=== PATIENT | male | born 1980 | race Caucasian/White ===

== ENCOUNTER 2018-10-29 13:54 | Emergency (ER) | payer BC ==
[~2018-10-29 13:54] MED LIST: ALBU1.257 IH; AZI250 PO; CIP500 PO; CLIN300C99 PO; DOXY-179 PO; ESC10 FT; HYDR-653 PO; KET10 PO; LOR5/325 PO; MELA10CA PO; MOTRIN; NO ROUTINE MEDS; NO RTN MEDS; OSE75 PO; PER PO; PHEN120S16 PO; PHEN240S3 PO; PRE20 PO; PSE30 PO; ZOLP-350 PO; [UNRECOGNIZED DRUG - OTHER] PO
--- NOTE | 2018-10-29 13:56 | ER Report ---
History and Physical Time Seen By MD: 13:56 (SARA KENNEDY MD) HPI/ROS CHIEF COMPLAINT: Dizziness HISTORY OF PRESENT ILLNESS: Patient is a 38-year-old male presents to the emergency department complaining of lightheadedness and dizziness over the past month. It is episodic in nature. It seems to occur after a coughing episode wh ich the patient and also having for the last month. He also states that at times feels like he can't catch his breath. Denies any actual chest pressure or pain. He denies any palpitations. He's noticed dark concentrated urine despite drinking a lot of water. Patient denies any fevers or chills. He denies any sinus pressure. He denies any abdominal pain nausea or vomiting. He has no known ill contacts. He denies any history of venous thromboembolic disease. He does not have a specific primary care provider but does follow up with urgent care. There is a positive family history for diabetes. Patient also admits to having frequent headaches which she takes ibuprofen for which does improve or relieve his headache. Patient denies any double vision or ringing in his ears. He reports that when he has his headache he occasionally gets neck discomfort he's also noticed some "visual changes such as blurry vision in the last month or so. REVIEW OF SYSTEMS: Constitutional: No fever, no chills. Eyes: No discharge. Blurry vision ENT: No sore throat. Cardiovascular: No chest pain, no palpitations. Respiratory: Dyspnea Gastrointestinal: No abdominal pain, no vomiting. Genitourinary: No hematuria. Musculoskeletal: No back pain. Skin: No rashes. Neurological: Episodic headaches (SARA KENNEDY MD) Allergies: Coded Allergies: nickel (Verified Allergy, Intermediate, RASH, 09/25/17) Penicillins (Verified Allergy, Mild, HIVES, 09/25/17) Home Meds Active Scripts Azithromycin 250 Mg Tab (AZITHROMYCIN 250 MG TAB) 250 Mg Tablet, 1 TAB PO QDAY, #6 TAB two pills today (500mg) then one pill once a day for 4 more days Prov:THAIS MOOER Nathanael WILSON 10/29/18 Past Medical/Surgical History No significant past medical history (SARA KENNEDY MD) Hx Smoking: No Smoking Status: Never Smoker Exposure to Second Hand Smoke?: No Hx Substance Use Disorder: No Hx Alcohol Use: Yes (SARA KENNEDY MD) Constitutional Vital Sign - Last 24 Hours 10/29/18 14:01 Temp 98.7 Pulse 99 Resp 16 B/P (MAP) 148/78 Pulse Ox 93 O2 Delivery Room Air (THAIS MOORE V ) Physical Exam General/Constitutional: Patient is awake, alert, nontoxic and in no acute respiratory distress. Head: Normocephalic and atraumatic. Eyes: Conjunctival clear, Pupils are equal and reactive to light. Extraocular muscles are intact and symmetrical. Sclera are clear and anicteric. No nystagmus Ears:External canals are clear. Tympanic membranes are clear with normal landmarks and light reflex. Nares: No rhinorrhea or bleeding. Turbinates are pink and moist. Oropharyngeal: Mucous membranes are moist. There is no pharyngeal erythema or exudate. There are no palatal petechiae. Uvula is midline and symmetrical. Neck: Supple, no adenopathy. Cardiovascular: Heart is regular rate and rhythm without audible murmurs, rubs or gallops. Pulmonary: Lungs are clear to auscultation bilaterally. There are no wheezes, rales, or rhonchi. Chest rise is symmetrical Abdomen: Soft, nontender, no guarding or peritoneal signs. Extremities: No gross deformities, No peripheral cyanosis. Able to move all 4 extremities. Neuro: Alert and oriented X3, Cranial nerves 2 thru 12 are intact and symmetrical. Skin: No rashes, skin is warm dry and well perfused. (SARA KENNEDY MD) Medical Decision Making Data Points Result Diagram: 10/29/18 1448 10/29/18 1448 Laboratory Hematology Test 10/29/18 14:45 10/29/18 14:48 Urine Color Yellow Urine Clarity Clear Urine pH 6.0 pH (4.8-9.5) Urine Specific [place] [facility] 1.010 Urine Protein Negative mg/dL (NEGATIVE) Urine Glucose (UA) Negative mg/dL (NEGATIVE) Urine Ketones Negative mg/dL (NEGATIVE) Urine Blood Negative (NEGATIVE) Urine Nitrite Negative (NEGATIVE) Urine Bilirubin Negative (NEGATIVE) Urine Urobilinogen Negative mg/dL (0.2-1.9) Urine Leukocyte Esterase Negative (NEGATIVE) Urine RBC None /HPF (0-2/HPF) Urine WBC <1 /HPF (0-5/HPF) Urine Squamous Epithelial Cells None /LPF (</=FEW) Urine Bacteria Negative /HPF (NONE-FEW) Urine Hyaline Casts Few /LPF (NONE-FEW) Urine Mucus None /HPF (NONE-FEW) Red Blood Count 5.61 M/uL (4.00-5.60) Mean Corpuscular Volume 91.7 fL (80.0-96.0) Mean Corpuscular Hemoglobin 31.4 pg (26.0-33.0) Mean Corpuscular Hemoglobin Concent 34.2 g/dL (32.0-36.0) Red Cell Distribution Width 14.2 % (11.5-14.5) Mean Platelet Volume 8.9 fL (7.2-11.1) Neutrophils (%) (Auto) 83.4 % (39.4-72.5) Lymphocytes (%) (Auto) 10.5 % (17.6-49.6) Monocytes (%) (Auto) 4.4 % (4.1-12.4) Eosinophils (%) (Auto) 0.3 % (0.4-6.7) Basophils (%) (Auto) 1.4 % (0.3-1.4) Nucleated RBC Relative Count (auto) 0.1 /100WBC Neutrophils # (Auto) 8.8 K/uL (2.0-7.4) Lymphocytes # (Auto) 1.1 K/uL (1.3-3.6) Monocytes # (Auto) 0.5 K/uL (0.3-1.0) Eosinophils # (Auto) 0.0 K/uL (0.0-0.5) Basophils # (Auto) 0.1 K/uL (0.0-0.1) Nucleated RBC Absolute Count (auto) 0.01 K/uL Prothrombin Time 12.9 seconds (12.0-14.4) Prothromb Time International Ratio 0.97 Activated Partial Thromboplast Time 34 seconds (23-35) D-Dimer Quantitative (PE/DVT) < 0.27 ug/ml (0-0.50) Sodium Level 140 mmol/L (137-145) Potassium Level 4.6 mmol/L (3.5-5.0) Chloride Level 103 mmol/L (98-107) Carbon Dioxide Level 25 mmol/L (22-30) Blood Urea Nitrogen 15 mg/dl (9-21) Creatinine 1.20 mg/dl (0.66-1.25) Glomerular Filtration Rate Calc > 60.0 Random Glucose 97 mg/dl (75-110) Calcium Level 9.7 mg/dl (8.4-10.2) Total Bilirubin 0.9 mg/dl (0.2-1.3) Aspartate Amino Transf (AST/SGOT) 30 U/L (0-35) Alanine Aminotransferase (ALT/SGPT) 64 U/L (0-56) Alkaline Phosphatase 85 U/L (0-126) Troponin I < 0.012 ng/ml Total Protein 8.3 g/dl (6.3-8.2) Albumin 4.7 g/dl (3.5-5.0) Chemistry Test 10/29/18 14:45 10/29/18 14:48 Urine Color Yellow Urine Clarity Clear Urine pH 6.0 pH (4.8-9.5) Urine Specific [place] 1.010 Urine Protein Negative mg/dL (NEGATIVE) Urine Glucose (UA) Negative mg/dL (NEGATIVE) Urine Ketones Negative mg/dL (NEGATIVE) Urine Blood Negative (NEGATIVE) Urine Nitrite Negative (NEGATIVE) Urine Bilirubin Negative (NEGATIVE) Urine Urobilinogen Negative mg/dL (0.2-1.9) Urine Leukocyte Esterase Negative (NEGATIVE) Urine RBC None /HPF (0-2/HPF) Urine WBC <1 /HPF (0-5/HPF) Urine Squamous Epithelial Cells None /LPF (</=FEW) Urine Bacteria Negative /HPF (NONE-FEW) Urine Hyaline Casts Few /LPF (NONE-FEW) Urine Mucus None /HPF (NONE-FEW) White Blood Count 10.6 k/uL (4.5-11.0) Red Blood Count 5.61 M/uL (4.00-5.60) Hemoglobin 17.6 g/dL (14.0-18.0) Hematocrit 51.4 % (42.0-52.0) Mean Corpuscular Volume 91.7 fL (80.0-96.0) Mean Corpuscular Hemoglobin 31.4 pg (26.0-33.0) Mean Corpuscular Hemoglobin Concent 34.2 g/dL (32.0-36.0) Red Cell Distribution Width 14.2 % (11.5-14.5) Platelet Count 180 K/uL (150-450) Mean Platelet Volume 8.9 fL (7.2-11.1) Neutrophils (%) (Auto) 83.4 % (39.4-72.5) Lymphocytes (%) (Auto) 10.5 % (17.6-49.6) Monocytes (%) (Auto) 4.4 % (4.1-12.4) Eosinophils (%) (Auto) 0.3 % (0.4-6.7) Basophils (%) (Auto) 1.4 % (0.3-1.4) Nucleated RBC Relative Count (auto) 0.1 /100WBC Neutrophils # (Auto) 8.8 K/uL (2.0-7.4) Lymphocytes # (Auto) 1.1 K/uL (1.3-3.6) Monocytes # (Auto) 0.5 K/uL (0.3-1.0) Eosinophils # (Auto) 0.0 K/uL (0.0-0.5) Basophils # (Auto) 0.1 K/uL (0.0-0.1) Nucleated RBC Absolute Count (auto) 0.01 K/uL Prothrombin Time 12.9 seconds (12.0-14.4) Prothromb Time International Ratio 0.97 Activated Partial Thromboplast Time 34 seconds (23-35) D-Dimer Quantitative (PE/DVT) < 0.27 ug/ml (0-0.50) Glomerular Filtration Rate Calc > 60.0 Calcium Level 9.7 mg/dl (8.4-10.2) Total Bilirubin 0.9 mg/dl (0.2-1.3) Aspartate Amino Transf (AST/SGOT) 30 U/L (0-35) Alanine Aminotransferase (ALT/SGPT) 64 U/L (0-56) Alkaline Phosphatase 85 U/L (0-126) Troponin I < 0.012 ng/ml Total Protein 8.3 g/dl (6.3-8.2) Albumin 4.7 g/dl (3.5-5.0) Coagulation Test 10/29/18 14:48 Prothrombin Time 12.9 seconds Prothromb Time International Ratio 0.97 Activated Partial Thromboplast Time 34 seconds D-Dimer Quantitative (PE/DVT) < 0.27 ug/ml Urinalysis Test 10/29/18 14:45 Urine Color Yellow Urine Clarity Clear Urine pH 6.0 pH (4.8-9.5) Urine Specific [place] 1.010 Urine Protein Negative mg/dL (NEGATIVE) Urine Glucose (UA) Negative mg/dL (NEGATIVE) Urine Ketones Negative mg/dL (NEGATIVE) Urine Blood Negative (NEGATIVE) Urine Nitrite Negative (NEGATIVE) Urine Bilirubin Negative (NEGATIVE) Urine Urobilinogen Negative mg/dL (0.2-1.9) Urine Leukocyte Esterase Negative (NEGATIVE) Urine RBC None /HPF (0-2/HPF) Urine WBC <1 /HPF (0-5/HPF) Urine Squamous Epithelial Cells None /LPF (</=FEW) Urine Bacteria Negative /HPF (NONE-FEW) Urine Hyaline Casts Few /LPF (NONE-FEW) Urine Mucus None /HPF (NONE-FEW) (THAIS MOORE DO) EKG/Imaging EKG Interpretation EKG shows normal sinus rhythm with a ventricular rate of 86 bpm. No priors to compare with Monitor Interpretation: Normal Sinus Rhythm (SARA KENNEDY MD) ED Course/Re-evaluation Clinical Indication for ER IV: Hydration, IV Access ED Course After history and physical exam was performed differential diagnosis was formulated which includes but is not limited to new onset diabetes, cardiac dysrhythmia, infectious causes. Plan at this time will be to give IV fluids. We will check CBC CMP hemoglobin A1c urinalysis, EKG, chest x-ray, noncontrast CT of the head, we'll also check troponin and d-dimer. Decision to Disposition Date: Oct 29, 2018 Decision to Disposition Time: 17:00 (SARA KENNEDY MD) ED Course 10/29/2018 4:20:18 pm Pt signed out to me pending CT report. Pts CT shows mild sinusitis. Pt has had cough, congestion and dizziness. Left ear appears clear however could have mild infection resulting in dizziness. Will treat his sinusitis. WIll also send home with holter monitor so that we can further monitor for his light headed, palpitations, dizziness. Decision to Disposition Date: Oct 29, 2018 Decision to Disposition Time: 16:21 (THAIS MOORE DO) Depart Departure Latest Vital Signs Vital Signs Date Time Temp Pulse Resp B/P (MAP) Pulse Ox O2 Delivery O2 Flow Rate FiO2 10/29/18 14:01 98.7 99 16 148/78 93 Room Air (THAIS MOORE DO) Impression: Primary Impression: Left maxillary sinusitis Additional Impression: Dizziness Condition: Improved Disposition: HOME OR SELF-CARE New Scripts Azithromycin 250 Mg Tab (AZITHROMYCIN 250 MG TAB) 250 Mg Tablet 1 TAB PO QDAY, #6 TAB two pills today (500mg) then one pill once a day for 4 more days Prov: THAIS MOORE DO 10/29/18 Patient Instructions: Sinusitis (ED) Additional Instructions: Your blood work and urine today was stable. Your cat scan showed a mild sinus infection. We will treat using an antibiotic. Your chest xray did not show pneumonia We are sending you home with a holter monitor to further evaluate reasons for your some of your symptoms today. Return for any concerns. Problem Qualifiers SARA KENNEDY MD Oct 29, 2018 13:56 THAIS MOORE DO Oct 29, 2018 16:26
[2018-10-29] MEDS ORDERED: NS(*) 0.9% 1000 ML BAG 1,000 ML IV ONE (14:37)
[2018-10-29 15:00] LABS: PLATELET COUNT, AUTOMATED 180 K/uL (150-450)
[2018-10-29 15:13] LABS: INR 0.97
--- NOTE | 2018-10-29 15:45 | RADIOLOGY IMAGING REPORT ---
FACILITY: [facility] PATIENT NAME: Neo Chand : 1980 MR: [id number] V: [id number] EXAM DATE: ORDERING PHYSICIAN: SARA KENNEDY TECHNOLOGIST: Location: [facility] - [place] Patient: Neo Chand : 1980 Visit/Account:[id number] Date of Sevice: 10/29/2018 CT Head without contrast Indication: Dizziness. Comparison: None available Technique: Axial CT images were obtained through the brain from the skull base to the vertex without administration of IV contrast. Reformatted coronal and sagittal images were also obtained. One of the following dose optimization techniques was utilized in the performance of this exam: autom ated exposure control; adjustment of the mA and/or kV according to the patient's size; or use of an i terative reconstruction technique. Specific details can be referenced in the facility's radiology CT exam operational policy. Findings: No evidence of mass, mass effect, or midline shift. No acute intracranial hemorrhage or acute territorial infarction. No extra-axial fluid collection or hydrocephalus. No abnormal density. Prince/white matter differentiat ion appears normal. Bony structures show no fractures or lesions. Rightward deviation nasal septum. Mild mucosal thickening seen in the left maxillary sinus. The remaining sinuses and mastoids visualiz ed are clear. IMPRESSION: 1. No acute intracranial abnormality. 2. Mild left maxillary sinus disease. Report Dictated By: Chilango Yen at 10/29/2018 3:37 PM Report E-Signed By: Chilango Yen at 10/29/2018 3:42 PM WSN:[id number]
--- NOTE | 2018-10-29 15:47 | RADIOLOGY IMAGING REPORT ---
FACILITY: [facility] PATIENT NAME: Neo Chand : 1980 MR: [id number] V: [id number] EXAM DATE: ORDERING PHYSICIAN: SARA KENNEDY TECHNOLOGIST: Location: [facility] - [place] Patient: Neo Chand : 1980 Visit/Account:[id number] Date of Sevice: 10/29/2018 2 VIEWS CHEST INDICATION: Chest pain. COMPARISON: 04/17/2013. FINDINGS: Cardiomediastinal silhouette and pulmonary vessels within normal limits. There is no focal infiltrate or lobar consolidation. There is no pneumothorax or pleural effusion. No nodule. Upper abdomen is unremarkable. No acute bony abnormality. IMPRESSION: 1. No acute cardiopulmonary process. Report Dictated By: Chilango Yen at 10/29/2018 3:42 PM Report E-Signed By: Chilango Yen at 10/29/2018 3:44 PM WSN:[id number]
[2018-10-29 16:00] VITALS: BP 119/89
[2018-10-29] MEDS ORDERED: AZIT-18 PO (16:23)
--- NOTE | 2018-10-29 16:23 | EKG ---
FACILITY: [facility] PATIENT NAME: ADARSH HERZOG : [id number] MR: [id number] V: [id number] EXAM DATE: ORDERING PHYSICIAN: SARA KENNEDY TECHNOLOGIST: ELANA Test Reason : DDIZZINESS Blood Pressure : / mmHG Vent. Rate : 086 BPM Atrial Rate : 086 BPM P-R Int : 138 ms QRS Dur : 086 ms QT Int : 354 ms P-R-T Axes : 036 021 015 degrees QTc Int : 423 ms Sinus arrhythmia Nonspecific ST-T findings No previous ECGs available Confirmed by BRANDON OBANDO ([id number]) on 10/30/2018 6:05:42 AM Referred By: MARCIA Confirmed By:BRANDON OBANDO
== END 2018-10-29 16:45 | disposition home or self-care (01) ==
LOC: ER 13:58
DX: J32.0 Chronic maxillary sinusitis (principal); R42 Dizziness and giddiness
CPT/HCPCS: 36415; 81001; 83036; 84484; 85025; 85379; 85610; 85730; 93005; 93225; 96360; 96361; 99285; J7030; 82040; 82247; 82310; 82374; 82435; 82565; 82947; 84075; 84132; 84155; 84295; 84450; 84460; 84520